=== PATIENT | male | born 1940 | race African-American/Black ===

== ENCOUNTER 2017-10-27 10:21 | Outpatient (CLI) | payer MEDICARE, OTHER ==
--- NOTE | 2017-10-27 11:58 | RAD ---
TWO VIEWS LUMBAR SPINE: Date: 10-27-17 History: Long standing back pain. Comparison: 07-08-17 FINDINGS: Surgical clips overlie the right upper quadrant. There is an abdominal aortic iliac stent graft noted , also seen on prior exam. Again noted are five non-rib bearing lumbar type vertebral bodies. Mild di sc space narrowing is again seen at the lumbosacral junction. Remaining intervertebral disc spaces as well as vertebral body heights are within normal limits. Scattered osteophytes are present. There is no fracture or subluxation seen. IMPRESSION: 1. Overall stable degenerative changes in the lower thoracic and lumbar spine. No fracture or subluxa tion is seen. POS: [facility]
== END 2017-10-27 10:22 | disposition home or self-care (01) ==
LOC: TBSIIMAG 10:21
PROVIDERS: ATTEND Neurological Surgery
DX: M54.5 Low back pain (principal); M47.895 Other spondylosis, thoracolumbar region
CPT/HCPCS: 72100

== ENCOUNTER 2018-03-25 13:41 | Outpatient (CLI) | payer MEDICARE ==
[2018-03-25] MEDS ORDERED: Gadobenate Dimeglumine 529 MG/1 ML (20ML VIAL) ONE (13:46)
--- NOTE | 2018-03-25 16:14 | MRI ---
MRI LUMBAR SPINE WITH AND WITHOUT IV CONTRAST: 03/25/18 HISTORY: Lumbar radiculopathy. Patient complains of lower back pain. History of prior back surgeries. COMPARISON: None available. FINDINGS: There is an infrarenal abdominal aortic aneurysm incompletely imaged on this exam. Greatest transvers e dimension on this exam is 4.2 cm. This aneurysm was better visualized on the CT abdomen on 06/04/16, but there has been interval stent graft repair. There is an increased T2 with corresponding decreased T1 weighted signal intensity lesion involving t he superior pole left kidney incompletely imaged on this exam but where seen does not demonstrate enh ancement and is most consistent with a cyst. This was better visualized on CT abdomen on 06/04/16 which demonstrated characteristic consistent with a cyst on that exam. Remainder of the retroperitoneal structures demonstrate a normal MRI appearance. The conus medullaris terminates at the L1-2 level and has a normal appearance. There is minimal nonspecific heterogeneity of the bone marrow. A few subcentimeter increased T1 and T 2 signal intensity in the L1 and L3 vertebral bodies likely related to tiny hemangiomas versus focal areas of fat. L1-2 level: There is a mild broad based disc bulge which does not result in significant narrowing of the central spinal canal or neural foramina. L2-3 level: There is a mild broad based disc bulge with tiny central disc protrusion. This results in slight flattening of the anterior aspect of the thecal sac. Neural foramina are patent. L3-4 level: There is a mild broad based disc osteophyte complex with facet hypertrophic changes and l igamentous thickening. There is mild narrowing of the central spinal canal. There is minimal left and mild right sided neural foraminal narrowing. L4-5 level: There is a left laminotomy defect at this level. There is a broad based disc osteophyte c omplex with central disc protrusion. This does result in mild narrowing of the central spinal canal. There is sight posterior displacement of the traversing right L5 nerve root without deformity of the nerve root primarily related to effacement of the anterior aspect of the thecal sac at this level. Mi ld bilateral neural foraminal narrowing is present greater on the right. L5-S1 level: There is loss of the intervertebral disc height with mild end plate degenerative changes noted. There is a mild disc osteophyte complex present. Central spinal canal is patent. There is min imal encroachment on the left neural foramen. The right neural foramen is patent. There is mild enhancement adjacent to the spinous process of L5 likely related to inflammatory change s and/or scarring. No abnormal signal intensity is seen within the spinous process in this region. IMPRESSION: 1. Findings suggestive of an infrarenal abdominal aortic aneurysm, but patient has had prior jacky nt graft repair. There is mural thrombus present surrounding the graft, likely related to thrombosis within the aneurysm sac. The transverse dimension of the aneurysm sac is smaller in size compared to the prior exam of 2016 and measures 4.3 cm in transverse dimensions and previously measured 5.2 cm in transverse dimension. 2. Large left renal cyst incompletely imaged. 3. Postsurgical changes at the L4-5 level related to left laminotomy defect. There is a disc bul ge and associated osteophyte formation at the L4-5 level which does result in mild bilateral neural f oraminal narrowing and mild central canal narrowing. 4. Mild degenerative changes in the remainder of the lumbar spine as described above. POS: [facility]
== END 2018-03-25 13:42 | disposition home or self-care (01) ==
LOC: TBSIIMAG 13:41
PROVIDERS: ATTEND Neurological Surgery
DX: M47.27 Other spondylosis with radiculopathy, lumbosacral region (principal); M47.26 Other spondylosis with radiculopathy, lumbar region; M48.061 Spinal stenosis, lumbar region without neurogenic claudication; M99.83 Other biomechanical lesions of lumbar region; M51.16 Intervertebral disc disorders with radiculopathy, lumbar region; M25.78 Osteophyte, vertebrae; N28.1 Cyst of kidney, acquired; Z98.890 Other specified postprocedural states
CPT/HCPCS: 72158; 82565; A9579

== ENCOUNTER 2019-01-27 13:51 | Outpatient (CLI) | payer MEDICARE ==
[~2019-01-27 13:51] MED LIST: Gadobenate Dimeglumine 529 MG/1 ML (20ML VIAL) ONE
--- NOTE | 2019-01-27 18:29 | MRI ---
CERVICAL SPINE MRI WITH AND WITHOUT CONTRAST 01/27/19 INDICATION: Cervical radiculopathy, neck pain. FINDINGS: Imaged posterior fossa contents reveal no significant abnormality. Degenerative hypertrophy at the C1 -2 level is present without high grade central canal stenosis. C2-3: No high grade central canal or neural foraminal stenosis. C3-4: Broad based disc osteophyte asymmetric to the right is present. This does result in ventral cer vical spinal cord effacement and moderate right foraminal stenosis. There is mild narrowing of the le ft neural foramen. C4-5: There is a prominent central disc osteophyte with central cord effacement and mild narrowing of the central canal. Moderate right and mild left neural foraminal narrowing present. C5-6: There is mild disc osteophyte without high grade central canal stenosis. Uncinate process hyper trophy is present with mild left neural foraminal narrowing. There is no significant right foraminal stenosis. C6-7: There is mild disc osteophyte without high grade central canal or foraminal stenosis. C7-T1: No high grade central canal or foraminal stenosis. Note is made that there is significant persistent patient motion throughout the exam which does marke dly degrade image quality and this limits the evaluation. Postcontrast imaging does not reveal pathol ogic intramedullary enhancement. No acute marrow edema. IMPRESSION: Multilevel cervical spine degenerative change. Evaluation is limited by the degree of patient motion. No pathologic intramedullary enhancement of the cervical spinal cord is identified. POS: [facility]
--- NOTE | 2019-01-27 19:01 | MRI ---
MRI LUMBAR SPINE WITH AND WITHOUT CONTRAST 01/27/19 COMPARISON: 03/25/18 HISTORY: Low back pain. Previous lumbar surgery. TECHNIQUE: MRI of the lumbar spine is performed with and without intravenous gadolinium administration. Multiseq uential, multiplanar imaging is performed. FINDINGS: An appropriate T1 marrow signal intensity of the lumbar vertebra. Lumbar spine vertebral body height is maintained. There is no fracture. No significant STIR hyperintensity to suggest vertebral body nata ma or ligamentous injury. Symmetric signal intensity to the psoas muscles. There is a T2 hyperintensity in the upper pole left kidney, likely representing a cyst. Currently, this lesion measures 6.4 cm (previously measuring 6.6 cm). There does appear to be aneurysmal dilatation of the infrarenal abdominal aorta with a endovascu lar stent. The viejas lumen appears to be 4.2 cm, unchanged. Conus medullaris terminates at the upper aspect of L1. On the postcontrast images there is no abnormal enhancement with regards to the vertebral bodies. The re is no abnormal enhancement within the thecal sac including the cauda equina and conus medullaris. T12-L1: Adequate disc hydration. No significant central canal stenosis or neural foraminal narrowing. L1-2: Adequate disc hydration. No significant central canal stenosis or neural foraminal narrowing. L2-3: Adequate disc hydration. Minimal central disc protrusion. Minimal ligamentum flavum thickening and facet hypertrophy. Results in minimal central canal stenosis. The degree of stenosis has not oswald ged since the previous exam. Neural foramina are patent bilaterally. L3-4: Adequate disc hydration. No significant loss of disc space height. Minimal left and right parac entral disc bulges with mild ligamentum flavum thickening and facet hypertrophy. There is resultant m ild central canal stenosis unchanged from the previous examination. Neural foramina are patent. L4-5: Desiccation without significant change in degree of disc space height. There is a broad based d isc bulge. Disc material encroaches upon both subarticular zones. Disc material abuts but does not ob scure either traversing L5 nerve root. There is left hemilaminotomy defect with minimal scar tissue a t the surgical site. There is no significant enhancement in either subarticular zone to suggest signi ficant scar formation. However, there is some linear enhancement along the posterior annulus of the d isc likely representing annular scar. There is no significant central canal stenosis. right neural fo ramen is minimally narrowed. Left neural foramen is patent. L5-S1: Stable loss of disc space height. There is no significant posterior disc abnormality. No signi ficant central canal stenosis. Mild bilateral foraminal narrowing. IMPRESSION: 1. Stable infrarenal abdominal aortic aneurysmal. Stable left renal cyst. 2. Postsurgical change at L4-L5. There is no significant central canal stenosis or significant f oraminal narrowing. Enhancement on the posterior margin of the L4-L5 disc likely representing annular scar. POS: [facility]
== END 2019-01-27 13:52 | disposition home or self-care (01) ==
LOC: TBSIIMAG 13:51
PROVIDERS: ATTEND Neurological Surgery
DX: M54.12 Radiculopathy, cervical region (principal); M54.5 Low back pain; I71.4 Abdominal aortic aneurysm, without rupture; M47.812 Spondylosis without myelopathy or radiculopathy, cervical region; N28.1 Cyst of kidney, acquired; Z98.890 Other specified postprocedural states
CPT/HCPCS: 72156; 72158; 82565; A9577

== ENCOUNTER 2021-10-01 16:08 | Emergency (ER) | payer MEDICARE ==
[~2021-10-01 16:08] MED LIST changes: -Gadobenate Dimeglumine 529 MG/1 ML (20ML VIAL) ONE; +Iopamidol-370 76% 500 ML 1 ML ONE
[2021-10-01 16:46] LABS: #Basophils 0.1 thou/uL (0.0-0.2); #Eosinphils 0.1 thou/uL (0.0-0.7); #Lymphocytes 1.7 thou/uL (1.20-3.40); #Monocytes 0.4 thou/uL (0.11-0.59); #Neutrophils 3.2 thou/uL (1.40-6.50); %Basophils 1.3 % (0.0-1.0); %Eosinophils 2.5 % (0.0-10.0); %Monocytes 6.8 % (0.0-10.0); %Neutrophils 58.5 % (42.0-75.0); Mean Corpuscular HGB CONC 33.8 g/dL (32.0-36.0); Mean Corpuscular Volume 91.9 fL (78.0-98.0); Mean Platelet Volume 8.4 fL (7.4-10.4); Platelet Count 174 thou/uL (130-400); RBC Distribution Width 13.2 % (11.5-14.5); Red Blood Cell (RBC) Count 4.52 mill/uL (4.70-6.10); White Blood Cell (WBC) Count 5.5 thou/uL (4.8-10.8)
[2021-10-01 17:20] LABS: ALT (SGPT) 18 U/L (8-55); AST (SGOT) 19 U/L (5-34); Alkaline Phosphatase 133 U/L (40-110); Anion Gap 14 mmol/L (10-20); BUN (Urea Nitrogen) 18 mg/dL (8.4-25.7); Bilirubin, Total 0.6 mg/dL (0.2-1.2); Calc. Creatinine Clearance 0 mL/min (70-130); Calcium 9.2 mg/dL (7.8-10.44); Carbon Dioxide 23 mmol/L (23-31); Chloride 105 mmol/L (98-107); Glucose 141 mg/dL (83-110); Lipase 27 U/L (8-78); Potassium 3.6 mmol/L (3.5-5.1); Sodium 138 mmol/L (136-145)
[2021-10-01] MEDS ORDERED: Ondansetron PF 4 MG/2 ML Vial ONE (17:26)
[2021-10-01 17:42] LABS: CKMB 1.6 ng/mL (0-6.6)
[2021-10-01] MEDS ORDERED: Enoxaparin Sodium 100 MG/ML SYRINGE ONE (18:47)
[2021-10-01] MEDS ORDERED: Enoxaparin Sodium 30 MG/0.3 ML SYRINGE ONE (18:47)
[2021-10-01] MEDS ORDERED: Morphine 4 MG/ML VIAL ONE (18:48)
== END 2021-10-01 21:54 | disposition short-term general hospital (02) ==
LOC: ERS 16:08
DX: I21.4 Non-ST elevation (NSTEMI) myocardial infarction (principal); R77.8 Other specified abnormalities of plasma proteins; I10 Essential (primary) hypertension; K21.9 Gastro-esophageal reflux disease without esophagitis; E78.5 Hyperlipidemia, unspecified; Z87.891 Personal history of nicotine dependence
CPT/HCPCS: 36415; 71045; 74177; 80053; 82553; 83690; 83880; 84484; 85025; 93005; 96372; 96374; 96375; J1650; J2270; J2405; Q9967